=== PATIENT | female | born 1945 | race Caucasian/White ===

== ENCOUNTER 2017-06-07 07:11 | Outpatient (CLI) | payer OTHER ==
[~2017-06-07 07:11] MED LIST: AMBIEN5 MG; ENALAPRIL-HCTZ1 EACH; JANUVIA25 MG; LOTREL 10-20 MG1 CAP; NAMENDA10 MG; SERTRALINE HCL50 MG; SIMVASTATIN40 MG
== END 2017-06-07 08:09 | disposition home or self-care (01) ==
LOC: NUCLEAR 07:11
DX: I25.10 Atherosclerotic heart disease of native coronary artery without angina pectoris (principal)
CPT/HCPCS: 78452; 93017; A9500; J0153

== ENCOUNTER 2017-09-08 11:27 | Outpatient (CLI) | payer OTHER | END 2017-09-08 11:40 | disposition home or self-care (01) | LOC: MAMO-SONO 11:27 | DX: Z12.31 Encounter for screening mammogram for malignant neoplasm of breast (principal); Z87.898 Personal history of other specified conditions; N60.11 Diffuse cystic mastopathy of right breast ==

== ENCOUNTER 2017-12-06 10:03 | Outpatient (CLI) | payer OTHER | END 2017-12-06 10:04 | disposition home or self-care (01) | LOC: LAB 10:03 | DX: E11.65 Type 2 diabetes mellitus with hyperglycemia (principal); E03.8 Other specified hypothyroidism; D64.89 Other specified anemias; Z12.4 Encounter for screening for malignant neoplasm of cervix; Z12.11 Encounter for screening for malignant neoplasm of colon; E78.2 Mixed hyperlipidemia ==

== ENCOUNTER 2018-07-26 13:59 | Outpatient (CLI) | payer OTHER | END 2018-07-26 14:59 | disposition home or self-care (01) | LOC: LAB 13:59 | DX: E11.9 Type 2 diabetes mellitus without complications (principal); E78.2 Mixed hyperlipidemia; I11.9 Hypertensive heart disease without heart failure ==

== ENCOUNTER 2018-09-13 10:28 | Outpatient (CLI) | payer OTHER ==
[~2018-09-13 10:28] MED LIST changes: -ATACAND16 MG; -METOPROLOL SUC100 MG; -TEMAZEPAM7.5 M1
[2018-09-13] MEDS ORDERED: METOPROLOL SUC100 MG (12:46)
[2018-09-13] MEDS ORDERED: ATACAND16 MG (12:46)
[2018-09-13] MEDS ORDERED: TEMAZEPAM7.5 M1 (12:47)
== END 2018-09-13 11:35 | disposition home or self-care (01) ==
LOC: LAB 10:28
DX: E11.69 Type 2 diabetes mellitus with other specified complication (principal); E78.2 Mixed hyperlipidemia; E03.8 Other specified hypothyroidism; E11.21 Type 2 diabetes mellitus with diabetic nephropathy; Z12.11 Encounter for screening for malignant neoplasm of colon; J45.998 Other asthma

== ENCOUNTER 2018-09-13 11:36 | Outpatient (CLI) | payer OTHER ==
[2018-09-13] MEDS ORDERED: METOPROLOL SUC100 MG (12:46)
[2018-09-13] MEDS ORDERED: ATACAND16 MG (12:46)
[2018-09-13] MEDS ORDERED: TEMAZEPAM7.5 M1 (12:47)
== END 2018-09-13 12:06 | disposition home or self-care (01) ==
LOC: SONOGRAMA 11:36
DX: E03.8 Other specified hypothyroidism (principal); E04.0 Nontoxic diffuse goiter

== ENCOUNTER → 2018-09-13 | Emergency (ER) | payer OTHER ==
[~2018-09-13] VITALS: Ht 152.4 cm; Wt 61.2 kg
[~2018-09-13] MED LIST changes: +ATACAND16 MG; +METOPROLOL SUC100 MG; +TEMAZEPAM7.5 M1
== END | disposition left against medical advice (07) ==
LOC: ER 12:30
DX: Z53.20 Procedure and treatment not carried out because of patient's decision for unspecified reasons (principal)

== ENCOUNTER 2018-12-25 11:49 | Outpatient (CLI) | payer OTHER ==
[~2018-12-25] VITALS: Ht 152.4 cm; Wt 62.6 kg
[~2018-12-25 11:49] MED LIST changes: +ATACAND16 MG; +METOPROLOL SUC100 MG; +TEMAZEPAM7.5 M1
== END 2018-12-25 12:26 | disposition home or self-care (01) ==
LOC: OFIC 805 11:49
DX: H81.49 Vertigo of central origin, unspecified ear (principal); H90.3 Sensorineural hearing loss, bilateral; H61.23 Impacted cerumen, bilateral

== ENCOUNTER 2019-01-29 07:37 | Outpatient (CLI) | payer OTHER | END 2019-01-29 07:45 | disposition home or self-care (01) | LOC: LAB 07:37 | DX: E11.21 Type 2 diabetes mellitus with diabetic nephropathy (principal); E78.2 Mixed hyperlipidemia; E11.51 Type 2 diabetes mellitus with diabetic peripheral angiopathy without gangrene ==

== ENCOUNTER 2019-01-29 08:24 | Outpatient (CLI) | payer OTHER | END 2019-01-29 08:27 | disposition home or self-care (01) | LOC: RX STUDY 08:24 | DX: R13.13 Dysphagia, pharyngeal phase (principal); R13.12 Dysphagia, oropharyngeal phase ==

== ENCOUNTER 2019-02-23 10:24 | Outpatient (CLI) | payer OTHER ==
[~2019-02-23] VITALS: Ht 152.4 cm; Wt 62.6 kg
[2019-03-09] MEDS ORDERED: LIPITOR40 MG (22:20)
[2019-03-09] MEDS ORDERED: TOPROL XL25 M1 (22:21)
[2019-03-09] MEDS ORDERED: TRIGLIDE160 MG (22:21)
[2019-03-09] MEDS ORDERED: JANUVIA25 MG (22:21)
[2019-03-09] MEDS ORDERED: BACTRIM DS TAB1 EACH PO (23:47)
== END 2019-02-23 14:43 | disposition home or self-care (01) ==
LOC: OFIC 805 10:24
DX: H91.8X3 Other specified hearing loss, bilateral (principal); R42 Dizziness and giddiness; H93.13 Tinnitus, bilateral

== ENCOUNTER → 2019-02-28 | Outpatient (CLI) | payer OTHER ==
[~2019-02-28] MED LIST changes: +BACTRIM DS TAB1 EACH PO; +LIPITOR40 MG; +TOPROL XL25 M1; +TRIGLIDE160 MG
== END | disposition home or self-care (01) ==
LOC: MRI 10:14
DX: H90.3 Sensorineural hearing loss, bilateral (principal); H93.13 Tinnitus, bilateral; R42 Dizziness and giddiness
CPT/HCPCS: 70553; A9575

== ENCOUNTER → 2019-03-09 | Emergency (ER) | payer OTHER ==
[~2019-03-09] VITALS: Ht 152.4 cm; Wt 58.1 kg
== END | disposition home or self-care (01) ==
LOC: ER 22:03
DX: N39.0 Urinary tract infection, site not specified (principal)

== ENCOUNTER 2019-03-23 10:26 | Outpatient (CLI) | payer OTHER ==
[~2019-03-23] VITALS: Ht 152.4 cm; Wt 61.2 kg
== END 2019-03-23 11:15 | disposition home or self-care (01) ==
LOC: OFIC 805 10:26
DX: H93.13 Tinnitus, bilateral (principal); H90.3 Sensorineural hearing loss, bilateral; J31.0 Chronic rhinitis; R42 Dizziness and giddiness

== ENCOUNTER 2019-05-29 11:02 | Outpatient (CLI) | payer OTHER | END 2019-05-29 15:00 | disposition home or self-care (01) | LOC: LAB 11:02 | DX: D64.89 Other specified anemias (principal); D68.8 Other specified coagulation defects; E03.8 Other specified hypothyroidism; E78.2 Mixed hyperlipidemia; E11.65 Type 2 diabetes mellitus with hyperglycemia; E11.21 Type 2 diabetes mellitus with diabetic nephropathy ==

== ENCOUNTER 2019-06-11 11:24 | Outpatient (CLI) | payer OTHER | END 2019-06-11 12:20 | disposition home or self-care (01) | LOC: NUCLEAR 11:24 | DX: I82.412 Acute embolism and thrombosis of left femoral vein (principal) ==

== ENCOUNTER → 2019-10-10 10:46 | Outpatient (CLI) | payer OTHER | END | disposition home or self-care (01) | LOC: LAB 10:46 | PROVIDERS: ATTEND Specialist | DX: E11.65 Type 2 diabetes mellitus with hyperglycemia (principal); D64.89 Other specified anemias; Z12.11 Encounter for screening for malignant neoplasm of colon; N39.0 Urinary tract infection, site not specified; E11.21 Type 2 diabetes mellitus with diabetic nephropathy ==

== ENCOUNTER 2020-08-13 10:06 | Outpatient (CLI) | payer OTHER | END 2020-08-13 10:07 | disposition home or self-care (01) | LOC: NUCLEAR 10:06 | PROVIDERS: ATTEND Physical Medicine & Rehabilitation | DX: M81.0 Age-related osteoporosis without current pathological fracture (principal) ==

== ENCOUNTER 2020-12-20 17:03 | Emergency (ER) | payer OTHER ==
[~2020-12-20] VITALS: Ht 152.4 cm; Wt 59.0 kg
[~2020-12-20 17:03] MED LIST changes: +DICLOFENAC SODI75 MG PO
[2020-12-20] MEDS ORDERED: BENADRYL (18:24)
== END 2020-12-20 19:04 | disposition home or self-care (01) ==
LOC: ER 17:03
DX: L27.0 Generalized skin eruption due to drugs and medicaments taken internally (principal); T39.395A Adverse effect of other nonsteroidal anti-inflammatory drugs [NSAID], initial encounter; Y92.89 Other specified places as the place of occurrence of the external cause

== ENCOUNTER 2021-04-07 11:13 | Outpatient (CLI) | payer OTHER ==
[~2021-04-07 11:13] MED LIST changes: +BENADRYL
== END 2021-04-07 11:18 | disposition home or self-care (01) ==
LOC: LAB 11:13
PROVIDERS: ATTEND Specialist
DX: E03.8 Other specified hypothyroidism (principal); N39.9 Disorder of urinary system, unspecified; E78.2 Mixed hyperlipidemia; E11.65 Type 2 diabetes mellitus with hyperglycemia

== ENCOUNTER 2021-06-26 10:34 | Outpatient (CLI) | payer OTHER | END 2021-06-26 11:31 | disposition home or self-care (01) | LOC: LAB 10:34 | PROVIDERS: ATTEND Specialist | DX: E03.9 Hypothyroidism, unspecified (principal); E11.21 Type 2 diabetes mellitus with diabetic nephropathy; D64.9 Anemia, unspecified; E11.65 Type 2 diabetes mellitus with hyperglycemia; N25.81 Secondary hyperparathyroidism of renal origin ==

== ENCOUNTER 2021-10-22 09:57 | Outpatient (CLI) | payer OTHER | END 2021-10-22 09:59 | disposition home or self-care (01) | LOC: TOM 09:57 | PROVIDERS: ATTEND Specialist | DX: J15.7 Pneumonia due to Mycoplasma pneumoniae (principal) ==

== ENCOUNTER → 2022-07-02 | Outpatient (CLI) | payer OTHER | END | disposition home or self-care (01) | LOC: RAD 08:46 | PROVIDERS: ATTEND Specialist | DX: I70.0 Atherosclerosis of aorta (principal) ==

== ENCOUNTER 2022-08-17 11:21 | Emergency (ER) | payer OTHER ==
[~2022-08-17] VITALS: Ht 152.4 cm; Wt 55.3 kg
[2022-08-17] MEDS ORDERED: CYCLOBENZAPRINE10 MG PO (13:57)
[2022-08-17] MEDS ORDERED: TYLENOL ARTHRI650 MG PO (13:57)
== END 2022-08-17 14:04 | disposition home or self-care (01) ==
LOC: ER 11:21
DX: S33.5XXA Sprain of ligaments of lumbar spine, initial encounter (principal); E11.9 Type 2 diabetes mellitus without complications; Z79.84 Long term (current) use of oral hypoglycemic drugs; I10 Essential (primary) hypertension; L10.0 Pemphigus vulgaris; Z88.8 Allergy status to other drugs, medicaments and biological substances

== ENCOUNTER 2023-05-09 11:50 | Outpatient (CLI) | payer OTHER ==
[~2023-05-09 11:50] MED LIST changes: +CYCLOBENZAPRINE10 MG PO; +TYLENOL ARTHRI650 MG PO
== END 2023-05-09 11:56 | disposition home or self-care (01) ==
LOC: RAD 11:50
PROVIDERS: ATTEND Specialist
DX: J45.30 Mild persistent asthma, uncomplicated (principal)

== ENCOUNTER 2023-05-24 09:16 | Outpatient (CLI) | payer OTHER | END 2023-05-24 09:27 | disposition home or self-care (01) | LOC: TOM 09:16 | PROVIDERS: ATTEND Internal Medicine Gastroenterology | DX: R10.32 Left lower quadrant pain (principal) ==